=== PATIENT | female | born 1955 | race Caucasian/White ===

== ENCOUNTER 2019-01-17 22:47 | Emergency (ER) | payer OTHER ==
[2019-01-17 22:56] VITALS: BP 152/71; PULSE 78; TEMP 97.7; BMI 36.6
[2019-01-17] MEDS ORDERED: LIDOCAINE HCL 2% (20ML MULTI-DOSE VIAL) NR ONE (23:02)
[2019-01-17] MEDS ORDERED: NEOMYCIN/POLYMYXN/HC OTIC SUSPENSION 10 ML BOTTLE ONE (23:16)
--- NOTE | 2019-01-17 23:21 | PDOC ---
History of Present Illness - General Chief Complaint: Foreign Body (FB) Stated Complaint: BUG IN RIGHT EAR Time Seen by Provider: 01/17/19 22:56 - History of Present Illness Initial Comments: This 63-year-old woman with a history of MS (currently stable) presents with foreign body in her right ear. She states that approximately a half hour prior to presentation, while at home , she felt an insect fly into her right ear. Since then, she has had intermittent pain and fluttering in the ear. No other complaints Past History - Past Medical History Allergies/Adverse Reactions: Allergies Allergy/AdvReac Type Severity Reaction Status Date / Time strawberry Allergy Verified 01/17/19 23:25 Home Medications: Ambulatory Orders Aspirin [ASA -] 81 mg PO DAILY 01/17/19 Atorvastatin Ca [Lipitor] 10 mg PO HS 01/17/19 Glatiramer Acetate [Copaxone] 40 mg SQ WEEKLY 01/17/19 Cancer: Yes (UTERINE 2013) COPD: No Thyroid Disease: No Other medical history: MS 2002 - Immunization History Immunization Up to Date: Yes - Suicide/Smoking/Psychosocial Hx Smoking History: Unknown if ever smoked Have you smoked in the past 12 months: No Number of Cigarettes Smoked Daily: 0 If you are a former smoker, when did you quit?: 0 Information on smoking cessation initiated: No Hx Alcohol Use: No Drug/Substance Use Hx: No Review of Systems - Review of Systems Able to Perform ROS?: Yes Comments:: 12 point review of systems is negative except for what is noted in the history of present illness *Physical Exam - Vital Signs Last Vital Signs Temp Pulse Resp BP Pulse Ox 97.7 F 78 18 152/71 97 01/17/19 22:51 01/17/19 22:51 01/17/19 22:51 01/17/19 22:51 01/17/19 22:51 - Physical Exam Comments: GENERAL:Adult female , alert and oriented in NAD HEAD: Normal with no signs of trauma. EYES: PERRLA, EOMI, sclera anicteric, conjunctiva clear. ENT: Right ear- insect seen , moving slowly in distal canal. TM not visualised. No blood or discharge seen NECK: Normal range of motion, supple without lymphadenopathy, JVD, or masses. LUNGS: Breath sounds equal, clear to auscultation bilaterally. No wheezes, and no crackles. NEUROLOGICAL: Cranial nerves II through XII grossly intact. Normal speech. No focal neurological deficits. MUSCULOSKELETAL: Back non-tender to palpation, no CVA tenderness SKIN: Warm, Dry, normal turgor, no rashes or lesions noted. Medical Decision Making - Medical Decision Making 2 mL of 2% lidocaine solution instilled into the right ear canal. Within a few minutes, patient noted that insect appeared to be moving more vigorously. Canal reexamined: Insect has moved to the external portion of the auditory canal within easy reach of instrument. Small alligator clamp used to gently remove the insect. Canal and TM reexamined: No evidence of obvious trauma. Insect appears to be a small beetle Because the presence of the insect for approximately an hour, there is some risk for otitis externa. 4 drops of Cortisporin otic suspension placed in the canal. Patient will continue this dosage 4 times a day for the next 5 days. Patient states that she and her have an ear nose and throat doctor; she has been strongly urged to follow-up with the ENT doctor within the next 5-7 days. If she has severe, persistent pain in the right ear or notices bloody/purulent discharge from the ear, she should return to the ER *DC/Admit/Observation/Transfer Diagnosis at time of Disposition: Foreign body in right ear Qualifiers: Encounter type: initial encounter Qualified Code(s): T16.1XXA - Foreign body in right ear, initial encounter - Discharge Dispostion Disposition: HOME Condition at time of disposition: Stable - Referrals - Patient Instructions Printed Discharge Instructions: DI for Removal of Foreign Body From Ear Additional Instructions: cortisporin otic suspension: 4 drops in right ear 4 X a day until seen by ENT physician call your ENT doctor tomorrow AM to arrange followup within 5 days return to ER or see your general doctor if you have increase in pain or develop discharge from ear/fever - Post Discharge Activity
== END 2019-01-17 23:31 | disposition home or self-care (01) ==
LOC: FER 22:47
DX: T16.1XXA Foreign body in right ear, initial encounter (principal); Z85.42 Personal history of malignant neoplasm of other parts of uterus; G35 Multiple sclerosis
CPT/HCPCS: 99282-25